=== PATIENT | female | born 1985 | race Caucasian/White ===

== ENCOUNTER 2020-06-27 16:41 | Emergency (ER) | payer MEDICAID ==
--- NOTE | 2020-06-27 17:15 | NUR ---
PT STATED SHE WAS LEAVING. LWBS
== END 2020-06-27 17:18 | disposition home or self-care (01) ==
LOC: MED 16:41
DX: Z53.21 Procedure and treatment not carried out due to patient leaving prior to being seen by health care provider (principal)

== ENCOUNTER 2020-08-27 21:16 | Emergency (ER) | payer MEDICAID ==
[~2020-08-27] VITALS: Ht 149.9 cm; Wt 79.4 kg
[2020-08-27 21:16] VITALS: BP 152/89
--- NOTE | 2020-08-27 21:16 | NUR ---
TO BED 7 BIBA, BLS WITH CC SUDDEN ONSET HEADACHE WHILE IN THE SHOWER. ALSO C/O NUMBNESS RIGHT HAND, AND LIPS. (+) PHOTOPHOBIA. HAS HISTORY OF ANXIETY. WAS STARTED ON LEXAPRO 2 DAYS AGO, TOOK 1 DOSE AND "I DIDN'T LIKE IT, SO I DIDN'T TAKE ANY MORE". SKIN WARM AND DRY, RR SLIGHTLY INCREASED 24 RPM PMH: ANXIETY ALLERGY: MORPHINE
--- NOTE | 2020-08-27 21:19 | NUR ---
BIBA TAKEN TO BED #7
--- NOTE | 2020-08-27 21:44 | NUR ---
[facility] at bedside for medical evaluation.
--- NOTE | 2020-08-27 22:00 | NUR ---
ESTABLISHED PERIPHERAL IV ACCESS. RT AC 20g, ASYMPTOMATIC AND PATENT. SALINE LOCKED. PT TOLERATED PROCEDURE WELL.
--- NOTE | 2020-08-27 22:20 | NUR ---
CONSENT OBTAINED FOR CT AND ANGIO
[2020-08-27] MEDS: diphenhydrAMINE 50 MG/ML VIAL IVP ONE (22:36)
[2020-08-27] MEDS: PROCHLORPERAZINE 10 MG/2 ML VIAL IVP ONE (22:36)
[2020-08-27] MEDS: ACETAMINOPHEN EXTRA STRENGTH 500 MG TAB PO ONE (22:36)
--- NOTE | 2020-08-27 22:50 | NUR ---
ESTABLISHED PERIPHERAL IV TO THE LEFT AC 18g, PATENT AND SALINE LOCKED.
[2020-08-27] MEDS: NACL 0.9% 1,000 ML IV ONE (23:15)
--- NOTE | 2020-08-27 23:22 | NUR ---
PT TAKEN TO CT VIA [facility].
--- NOTE | 2020-08-27 23:46 | NUR ---
PT RETURNED FROM CT VIA [facility]
--- NOTE | 2020-08-28 00:10 | NUR ---
ambulated to br
--- NOTE | 2020-08-28 01:38 | NUR ---
Patient discharged with v/s stable. Written and verbal after care instructions given and explained. Patient alert, oriented and verbalized understanding of instructions. Ambulatory with steady gait. All questions addressed prior to discharge. ID band removed. Patient advised to follow up with PMD. Rx of MOTRIN AND ATARAX given. Patient educated on indication of medication including possible reaction and side effects. Opportunity to ask questions provided and answered.
== END 2020-08-28 01:38 | disposition home or self-care (01) ==
LOC: MED 21:16
DX: R51.9 Headache, unspecified (principal); F41.9 Anxiety disorder, unspecified; F12.10 Cannabis abuse, uncomplicated; Z88.5 Allergy status to narcotic agent; Z90.49 Acquired absence of other specified parts of digestive tract
CPT/HCPCS: 70450; 70496; 96361; 96374; 96375; 99285; J0780; J1200; J7030; Q9967; 81002

== ENCOUNTER 2021-06-05 17:50 | Emergency (ER) | payer MEDICAID ==
[~2021-06-05] VITALS: Ht 152.4 cm; Wt 73.9 kg
[2021-06-05 18:12] VITALS: BP 134/85
[2021-06-05 20:08] LABS: BASOPHILS % (AUTO) 0.6 % (0.0-2.0); EOSINOPHILS # (AUTO) 0.1 K/uL (0-0.4); EOSINOPHILS % (AUTO) 1.6 % (0.0-4.0); HEMATOCRIT 40.6 % (36-48); HEMOGLOBIN 13.6 g/dL (12.0-16.0); LYMPHOCYTES # (AUTO) 2.1 K/uL (2.5-16.5); LYMPHOCYTES % (AUTO) 27.7 % (20.5-51.1); MEAN CORPUSCULAR HEMOGLOBIN 29 pg (27-31); MEAN CORPUSCULAR HGB CONC 34 g/dL (33-37); MEAN CORPUSCULAR VOLUME 87.6 fL (80-94); MONOCYTES # (AUTO) 0.6 K/uL (0.8-1.0); MONOCYTES % (AUTO) 8.4 % (1.7-9.3); NEUTROPHILS # (AUTO) 4.7 K/uL (1.8-7.7); NEUTROPHILS % (AUTO) 61.7 % (42.2-75.2); PLATELET COUNT (AUTO) 219 K/uL (140-450); RED BLOOD CELL COUNT(AUTO) 4.63 MIL/uL (4.20-5.40); RED CELL DISTRIBUTION WIDTH 13.8 % (11.6-13.7); WHITE BLOOD COUNT (AUTO) 7.7 K/uL (4.8-10.8)
[2021-06-05 20:23] LABS: ALBUMIN 3.9 g/dL (3.4-5.0); ANION GAP 11.6 (8-16); CARBON DIOXIDE 29.3 mmol/L (21-32); CREATININE 0.7 mg/dL (0.6-1.3); POTASSIUM 3.9 mmol/L (3.5-5.1); TOTAL BILIRUBIN 0.5 mg/dL (0.0-1.0)
--- NOTE | 2021-06-05 21:14 | NUR ---
PATIENT AMBULATORY TO BED 11
--- NOTE | 2021-06-05 21:21 | NUR ---
Dr. Yu examining patient.
--- NOTE | 2021-06-05 21:22 | NUR ---
36 YO/F BIB SELF W C/O HEADACHE X2 DAYS WORSENING AROUND LIGHT, THROBBING, NON-RAD, CONSTANT, +N/V XTODAY (5 VOMITING EPISODES). PT ALSO REPORTS X5 BOWEL MOVEMENTS YESTERDAY BUT DENIES DIARRHEA OR CONSTIPATION. PT DENIES LOC, SEIZURES, INJURY, OR URINARY SYMPTOMS. PT REPORTS SOME BURNING SENSATION TO ABDOMEN. BOWEL SOUNDS PRESENT ABDOMEN SOFT, NON-TENDER. VSS. PT LAYING IN BED LOCKED INLOWEST POSITION W X1 SIDERAIL UP. PROVIDED W BLANKET AND TURNES DOWN ROOM LIGHTS FOR COMFORT. BREATHING EVEN AND UNLABORED. NAD NOTED, WILL CONTINUE TO MONITOR. PMH:MIGRAINES, ANXIETY ALLERGIES: MORPHINE
[2021-06-05] MEDS ORDERED: diphenhydrAMINE 50 MG/ML VIAL IM ONE (22:15)
[2021-06-05] MEDS ORDERED: ONDA-188 SL (22:15)
[2021-06-05] MEDS ORDERED: PROCHLORPERAZINE 10 MG/2 ML VIAL IM ONE (22:15)
[2021-06-05] MEDS ORDERED: KETOROLAC 60 MG/2 ML VIAL IM ONE (22:15)
--- NOTE | 2021-06-05 23:05 | NUR ---
PT REPORTS PAIN IMPROVEMENT TO 2/10 AT THIS TIME.
--- NOTE | 2021-06-05 23:11 | NUR ---
PER ERMD PT URINE DIP DONE IN ED OK FOR PT DC, NO LAB URINALYSIS REQUIRED.
[2021-06-05 23:15] VITALS: BP 127/76
== END 2021-06-05 23:15 | disposition home or self-care (01) ==
LOC: MED 17:50
DX: G43.909 Migraine, unspecified, not intractable, without status migrainosus (principal); R11.2 Nausea with vomiting, unspecified; H53.149 Visual discomfort, unspecified; F41.9 Anxiety disorder, unspecified; Z88.5 Allergy status to narcotic agent; Z79.899 Other long term (current) drug therapy
CPT/HCPCS: 36415; 80053; 81002; 81025; 83690; 85025; 96372; 99284; J0780; J1200; J1885

== ENCOUNTER 2021-07-11 16:31 | Emergency (ER) | payer MEDICAID ==
[~2021-07-11] VITALS: Ht 152.4 cm; Wt 75.3 kg
[~2021-07-11 16:31] MED LIST: ONDA-188 SL
[2021-07-11 17:03] VITALS: BP 142/90
--- NOTE | 2021-07-11 17:08 | NUR ---
PT AMBULATED TO BED, STEADY GAIT
--- NOTE | 2021-07-11 17:09 | NUR ---
DR MARES AT BEDSIDE EXAMINING PT
[2021-07-11] MEDS ORDERED: ACETAMIN/CODEINE 120/12MG-5ML 5 ML UDC PO ONE (17:15)
--- NOTE | 2021-07-11 17:22 | NUR ---
XRAY AT BEDSIDE
--- NOTE | 2021-07-11 17:36 | NUR ---
36 year old female complaining of SOB, chest pain 6/10, and headache 8/10 lingering for 3 days. Bilateral lung sounds wheezing, productive cough. Has been taking theraflu for the cough. medhx: partial hysterectomy NKA
--- NOTE | 2021-07-11 18:09 | NUR ---
Apryl bernal collected. Sent to lab with Vivienne MILLER.
[2021-07-11] MEDS ORDERED: ROBAC PO (18:18)
[2021-07-11] MEDS ORDERED: AZIT250T4 PO (18:18)
[2021-07-11] MEDS ORDERED: ATA25 PO (19:02)
[2021-07-11] MEDS ORDERED: KETOROLAC 30 MG/ML VIAL IM ONE (19:05)
--- NOTE | 2021-07-11 19:31 | NUR ---
Patient discharged with v/s stable. Written and verbal after care instructions given and explained. Patient alert, oriented and verbalized understanding of instructions. Ambulatory with steady gait. All questions addressed prior to discharge. ID band removed. Patient advised to follow up with PMD. Rx of ATARAX, AZITHROMYCIN, CODEINE/GUAIFENENSIN given. Patient educated on indication of medication including possible reaction and side effects. Opportunity to ask questions provided and answered.
== END 2021-07-11 19:31 | disposition home or self-care (01) ==
LOC: MED 16:31
DX: F41.9 Anxiety disorder, unspecified (principal); J06.9 Acute upper respiratory infection, unspecified; F12.10 Cannabis abuse, uncomplicated; Z88.5 Allergy status to narcotic agent
CPT/HCPCS: 71045; 87426; 96372; 99284; J1885; Q0092

== ENCOUNTER 2021-07-21 05:26 | Emergency (ER) | payer MEDICAID ==
[~2021-07-21] VITALS: Ht 147.3 cm; Wt 72.6 kg
[~2021-07-21 05:26] MED LIST changes: +ATA25 PO; +AZIT250T4 PO; +ROBAC PO
[2021-07-21 05:50] VITALS: BP 128/79
--- NOTE | 2021-07-21 06:18 | NUR ---
[facility] CALLED BACK AND FACESHEET FAXED
[2021-07-21] MEDS ORDERED: ALBU0.0912 IH (08:21)
--- NOTE | 2021-07-21 08:35 | NUR ---
NO NURSING CARE GIVEN- Patient discharged with v/s stable. Written and verbal after care instructions given and explained. Patient alert, oriented and verbalized understanding of instructions. Ambulatory with steady gait. All questions addressed prior to discharge. ID band removed. Patient advised to follow up with PMD. Rx PROVENTIL HFA given. Patient educated on indication of medication including possible reaction and side effects. Opportunity to ask questions provided and answered.
[2021-07-21] MEDS ORDERED: ACETAMINOPHEN 325 MG TAB PO ONE (09:30)
[2021-07-21] MEDS ORDERED: ONDANSETRON 4 MG ODT PO ONE (09:30)
[2021-07-21 10:36] VITALS: BP 137/94
== END 2021-07-21 08:35 | disposition home or self-care (01) ==
LOC: MED 05:26
DX: J40 Bronchitis, not specified as acute or chronic (principal)
CPT/HCPCS: 71045; 99283; Q0162; 99284